=== PATIENT | female | born 1945 | race Caucasian/White ===

== ENCOUNTER 2023-10-18 11:07 | Emergency (ER) | payer OTHER, SELFPAY ==
[2023-10-18 11:16] VITALS: BP 187/86
--- NOTE | 2023-10-18 12:24 | ED.GENMED ---
History of Present Illness
General
Chief Complaint: Headache
Source: patient and family
Time Seen by Provider: 10/18/23 12:07
Travel History
Have you had any contact with someone who has COVID-19?: No
Do you have any symptoms of coronavirus? Fever > 100 degrees, chills, cough, shortness of breath, sore throat, loss of taste or smell, muscle aches, or headache?: No
History of Present Illness
History of Present Illness:
77-year-old female with no significant past medical history presenting to the emergency department for evaluation after she has noticed her blood pressure being elevated over the last 2 days with systolic measurements being greater than 200.
Patient states she normally does not check her blood pressure but noticed she felt as if she could hear her heart beating in her ears (she notes that she has had this sensation before and has been worked up without any specific pathology found) and
decided to check her blood pressure when she noticed it elevated. She notes that over the last 2 days she has just felt somewhat off and that today started to experience headache and left-sided facial paresthesia and upper extremity paresthesia.
Patient notes that she was very anxious after seeing continuously elevated blood pressure readings. She has never had elevated blood pressure in the past. She notes that a normal blood pressure for her is around 120/70. She denies any other focal
weakness, chest pain, shortness of breath, palpitations, visual disturbances, blurred vision or double vision, abdominal pain, nausea, vomiting. Patient notes that she is fairly active but states diet could be a little bit better. Social history
was noncontributory. Patient did note she took 2 aspirin earlier this morning prior to coming.
Past History
Past History
ED Past Medical History: Other (Diverticulosis)
ED Past Surgical History: None
Social History
Tobacco: Non-smoker
Alcohol: None
Drug: None
Personal:
Living: with family
Review of Systems
Review of Systems
All Other Systems: ROS reviewed and negative except as documented in HPI and ROS
Phy Exam
Physical Exam
Physical Exam:
GENERAL: Alert , in no apparent distress
EYE: pupils equal and reactive, 3 mm, EOMI
NECK: Supple
ENT: o/p clr, mmm.
CARDIAC: Regular rate and rhythm, no murmur.
LUNGS: Clear breath sounds bilaterally, no acute respiratory distress, no wheezes/rales/rhonchi
ABDOMEN: Soft, without focal tenderness, no r/g, no cvat
NEUROLOGICAL: Alert and oriented, moves all extremities, 5 out of 5 strength to upper and lower extremities bilateral, sensation grossly intact to light touch throughout the upper and lower extremity. Patient does note some subjective decrease
sensation to the entirety of the left side of the face but has no facial drooping or speech difficulty appreciated
SKIN: Warm and dry, skin intact.
MUSCULOSKELETAL: No edema, well perfused.
PSYCH: Normal and appropriate interaction.
Scores
NIH Stroke Score
Level of Consciousness: 0 - Alert
LOC Questions: 0-Answers both correctly
LOC Commands: 0-Performs both correctly
Best Horizontal Gaze: 0-Normal
Visual Powers: 0=Normal, no visual loss
Facial Palsy: 0=Normal, symmetrical
Motor - Right Arm: 0=No drift 10 seconds
Motor - Left Arm: 0=No drift 10 seconds
Motor - Right Le-No drift 5 seconds
Motor - Left Le-No drift 5 seconds
Limb Ataxia: 0-Absent
Sensation: 1-Mild loss
Best Language: 0-No aphasia
Dysarthria: 0-Normal
Extinction and Inattention: 0-No abnormality
Total Score:: 1
Heart Failure Risk
Heart Failure Risk Score: Not Applicable
Heart Score for Chest Pain Patients
STEMI patient?: Not applicable
Withdrawal Assessment of Alcohol
Withdrawal Assessment Completed?: Not applicable
Course
Orders/Labs/Results
Orders:
Orders
10/18/23 12:05
ECG [Electrocardiogram (*1)] Urgent
Reason for Study: Hypertension, Benign
Other Reason for Exam: HTN, L arm numbness
10/18/23 12:06
EKG- Treatment ONCE
10/18/23 12:22
Electrocardiogram (*1) Urgent
Reason for Study: Hypertension, Benign
CT Head W/o Iv Contrast Urgent
Comment:
Reason For Exam: HTN, headache, left sided paresthesia
10/18/23 12:42
Basic Metabolic Panel Urgent
CRP [C-Reactive Protein] Urgent
Complete Blood Count/With Diff Urgent
ESR [Erythrocyte Sed Rate] Urgent
Influenza A+B Rapid Molecular Urgent
SHANI Source: Nasal Swab
Specimen Description:
Abnormal Lab Results
10/18/23
12:42
RBC 3.32 L 10^6/uL
(4.20-5.40)
Hgb 11.4 L g/dL
(12.0-16.0)
Hct 34.5 L %
(37.0-47.0)
MCV 103.9 H fL
(81.0-99.0)
MCH 34.3 H pg
(27.0-31.0)
BUN 18 H mg/dl
(7-17)
10/18/23 12:42
10/18/23 12:42
Vital Signs
Initial and Last Documented VS:
Initial Vital Signs
Temp Pulse Resp BP Pulse Ox
97.9 F 73 18 187/86 98
10/18/23 11:16 10/18/23 11:16 10/18/23 11:16 10/18/23 11:16 10/18/23 11:16
Last Documented Vital Signs
Temp Pulse Resp BP Pulse Ox
97.9 F 66 16 176/80 99
10/18/23 11:16 10/18/23 13:06 10/18/23 13:06 10/18/23 13:06 10/18/23 13:06
Commercial Estimator consulted with Physician
Commercial Estimator consulted with physician?: Yes
Name of Physician Consulted: Noh
MDM/Problems Addressed
Differential Diagnosis Includes:
Hypertensive urgency/emergency, TIA/CVA, minimal concern for GCA, hypertension, kidney disease
MDM/Problems Addressed:
77-year-old female presenting to the emergency department for evaluation of elevated blood pressure over the last 2 days, today now noting a headache, as well as reported left-sided facial paresthesia and left upper extremity paresthesia. Her exam
is reassuring and without any focal findings. Triage blood pressure noted to be 187/86. Will continue to monitor this. In the meantime will order lab work, head CT, EKG. Will continuously reassess vital signs. Patient does note that she has
chronic muscular and back issues for which she takes Celebrex daily. Certainly due to daily NSAID use this could be contributing to patient's blood pressure. Patient already has a follow-up visit scheduled with her primary care physician for
October 30.
*Pulse Oximetry
Patient hypoxic: no
*EKG
Interpreted by ED Provider?: Yes
Comparison EKG: no comparison EKG present
Heart Rate: 66
Rate: normal
Rhythm: sinus
Douglas: normal axis
Ischemia: no ischemia
*Critical Care Note
Total Time (30-74mins, 75-104mins- exclusive of procedures): Not Applicable
Patient Management
Discussion with other providers: Invoice Clerk
Escalation/DeEscalation of care consider admission/obs:
On multiple reevaluations patient maintains most of her symptoms are resolving, blood pressure is downtrending however still elevated. While waiting for results patient had gone back through her previous outpatient visits and noted that since
May her blood pressure had been a little bit more elevated than she initially thought with occasional systolic measurements around 160. Given multiple blood pressure checks with patient's blood pressure being elevated I do think it is
reasonable to initiate patient on a low-dose medication. We discussed multiple antihypertensive medications and decided on 12.5 mg of HCTZ once daily. Also discussed lifestyle modifications. Patient does have arranged follow-up with primary care
on October 30. She is aware of return precautions. I did notify neurology due to the paresthesias patient is experiencing and they felt that this was more likely related to a hypertensive urgency and that controlling patient's blood pressure at
this time is fine and that patient can have a arranged outpatient follow-up MRI. Patient will contact her primary care for this. Both patient and daughter are agreeable with this plan.
ED Attending Note
-
Portions of this chart may have been created with voice recognition software.� Occasional wrong word or��sound alike� substitutions may have occurred due to the inherent limitations of voice recognition software.
Discharge Plan
Departure
Patient Disposition: Home (Routine Discharge)
Date of Disposition: 10/18/23
Time of Disposition: 13:58
Patient with high blood pressure during this ER visit?: Yes
Discharge Problem:
Hypertension
Instructions: BLOOD PRESSURE
Prescriptions:
New
hydrochlorothiazide 12.5 mg tablet
12.5 mg PO DAILY Qty: 30 0RF
Referrals:
Paul Matias MD [Family Provider] -
Interventions
Interventions:
*Risk Screen - Suicide Last Done: 10/18/23 11:16
*General Assessment Last Done: 10/18/23 14:15
*Neglect/Abuse Screening Last Done: 10/18/23 11:16
*ED COVID-19 Vaccine History Last Done: 10/18/23 11:16
*Nursing Disposition Last Done: 10/18/23 14:15
ED- Neurological Assessment Last Done: 10/18/23 11:31
Discharge Date and Time
Discharge Date/Time: 10/18/23 14:15
[2023-10-18 12:56] LABS: % Basophils 0.4 % (0-2); % Eosinophils 3.7 % (0-6); % Immature Granulocytes 0.4 % (0-0.5); % Lymphocytes 21.9 % (20.5-51.1); % Monocytes 8.5 % (1.7-9.3); % Neutrophils 65.1 % (42.2-75.2); Absolute Eosinophils 0.2 10^3/uL (0-0.7); Absolute Lymphocytes 1.2 10^3/uL (1.2-3.4); Absolute Monocytes 0.5 10^3/uL (0.1-0.6); Absolute Neutrophils 3.7 10^3/uL (1.4-6.5); Hematocrit 34.5 % (37.0-47.0); Hemoglobin 11.4 g/dL (12.0-16.0); Mean Corpuscular Hgb 34.3 pg (27.0-31.0); Mean Corpuscular Volume 103.9 fL (81.0-99.0); Nucleated Red Blood Cells % 0 %; Platelet Count 222 10^3/uL (130-400); Red Blood Cell Count 3.32 10^6/uL (4.20-5.40); Red Cell Dist. Width 11.7 % (11.5-14.5); White Blood Cell Count 5.7 10^3/uL (4.8-10.8)
[2023-10-18 13:06] VITALS: BP 176/80
[2023-10-18 13:06] LABS: Erythrocyte Sed Rate 13 mm/hour (0-20)
[2023-10-18 13:08] LABS: Blood Urea Nitrogen 18 mg/dl (7-17); Calcium 9.1 mg/dl (8.4-10.2); Carbon Dioxide 29 mmol/L (22-30); Chloride 107 mmol/L (98-107); Glucose 99 mg/dl (70-99); Potassium 4.4 mmol/L (3.5-5.1); Sodium 137 mmol/L (135-145); eGFR > 60.00
== END 2023-10-18 14:15 | disposition home or self-care (01) ==
LOC: EMR 11:07
PROVIDERS: Physician Assistant Medical; EMERGENCY PHYSICIAN Emergency Medicine; FAMILY PHYSICIAN Family Medicine
DX: I10 Essential (primary) hypertension (principal); R20.0 Anesthesia of skin; R20.2 Paresthesia of skin; R51.9 Headache, unspecified
CPT/HCPCS: 99284; 70450; 80048; 85025; 85652; 86140; 87502; 93005